=== PATIENT | female | born 1985 | race Two or more races ===

== ENCOUNTER 2018-05-31 01:28 | Inpatient (IN) | payer OTHER ==
[~2018-05-31] VITALS: Ht 152.4 cm; Wt 68.0 kg
[2018-05-31] MEDS ORDERED: NALBUPHINE 10 MG/ML AMPUL. IV PRN (01:45)
[2018-05-31] MEDS ORDERED: IBUPROFEN 400 MG TABLET. PO PRN (01:45)
[2018-05-31] MEDS ORDERED: OXYTOCIN 30 UNIT/500 ML PREMIX 500 ML IV PRN ×2 (01:45)
[2018-05-31] MEDS ORDERED: TERBUTALINE 1 MG/ML VIAL. SQ PRN (01:45)
[2018-05-31] MEDS ORDERED: LIDOCAINE 1% PF 30 ML VIAL. INJ PRN (01:45)
[2018-05-31] MEDS ORDERED: 0.9 % SODIUM CHLORIDE 10 ML DISP.SYRIN. IV PRN (01:45)
[2018-05-31] MEDS ORDERED: PENICILLIN G K 5,000,000 UNIT in IV DEXTROSE 5% 100ML 100 ML IV ONE (02:00)
[2018-05-31 02:15] LABS: BASO % 1 % (0-3); EOS # 0.3 x10^3/uL (0.0-0.7); EOS % 3 % (0-3); HEMATOCRIT 36.9 % (36.0-47.0); HEMOGLOBIN 12.6 g/dL (12.0-15.5); LYMPH # 2.1 x10^3/uL (1.0-4.8); LYMPH % 27 % (24-48); MEAN CORPUSCULAR HEMOGLOBIN 26 pg (25-35); MEAN CORPUSCULAR HGB CONC 34 g/dL (31-37); MEAN CORPUSCULAR VOLUME 76 fL (79-100); MONO # 0.6 x10^3/uL (0.0-1.1); MONO % 8 % (0-9); NEUT # 4.8 x10^3uL (1.8-7.7); NEUT % 61 % (31-73); PLATELET COUNT 149 x10^3/uL (140-400); RED BLOOD COUNT 4.89 x10^6/uL (3.50-5.40); RED CELL DISTRIBUTION WIDTH 14.7 % (11.5-14.5); WHITE BLOOD COUNT 7.9 x10^3/uL (4.0-11.0)
[2018-05-31] MEDS: IV RINGERS,LACTATED 1000ML 1,000 ML IV SCH ×3 (02:36→17:38)
[2018-05-31 02:37] LABS: ALBUMIN 2.8 g/dL (3.4-5.0); ALBUMIN/GLOBULIN RATIO 0.6 (1.0-1.7); CREATININE 0.7 mg/dL (0.6-1.0); GFR 98.3; POTASSIUM 3.5 mmol/L (3.5-5.1); TOTAL BILIRUBIN 0.3 mg/dL (0.2-1.0); TOTAL PROTEIN 7.8 g/dL (6.4-8.2)
--- NOTE | 2018-05-31 02:55 | RAD ---
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 Placenta is anteriorly located and grade 1 in appearance. movement and cardiac activity with heart rate of 136 bpm is identified. Cephalic lie noted. Amniotic fluid index is 11.7. Estimated weight is 4195 g. Sonographic EDC is 05/31/2018. Gestational age is 40 weeks 0 days. Biparietal diameter is 9.26 cm and this corresponds to 37 weeks 4 days. Head circumference is 33.76 cm corresponding to 38 weeks 5 days. Abdominal circumference is 38 cm this corresponds to 42 weeks 0 days. Femur length is 8.09 cm corresponding to 41 weeks 3 days. Head circumference to abdominal circumference ratio is 0.89. Impression: Single living intrauterine gestation with cephalic lie is present. Average ultrasound age corresponding to 40 weeks 0 days. Electronically signed by: Shemar Conley MD (05/31/2018 2:51 AM) [id number]
[2018-05-31 05:09] VITALS: BP 137/84
[2018-05-31] MEDS ORDERED: OXYTOCIN 30 UNIT/500 ML PREMIX 500 ML IV ONE (08:30)
[2018-05-31] MEDS ORDERED: OXYTOCIN PREMIX 30 UNIT/500 ML BAG. IV ONE (09:00)
[2018-05-31] MEDS: PENICILLIN G K 2,500,000 UNIT in IV DEXTROSE 5% 50 ML IV SCH ×4 (11:07→18:00)
--- NOTE | 2018-05-31 13:25 | PDOC1 ---
OB - History Hx of Present Care: None Ultrasounds: No ultrasounds Obstetrical Complications: None Medical Complications: None Past Family/Social History * Past Medical, Surgical, Family and Obstetric Histories reviewed from chart. Blood Type: Unknown Rubella: Unknown RPR/VDRL: Unknown GBS Status: Unknown HBsAG: Unknown OB - Chief Complaint & HPI Date of Admission: Date of Admission: May 31, 2018 at 01:28 Chief Complaint/History : 6 Para: 5 EGA: 40 Reason for admission: active labor Admission Nurse Assessment Rev: Yes OB - Admission Exam Physical Exam Vitals: VS - Last 72 Hours, by Label Date Time Temp Pulse Resp B/P (MAP) Pulse Ox O2 Delivery O2 Flow Rate FiO2 05/31/18 05:09 98.6 18 137/84 (101) Room Air 98.6 HEENT: Normal Heart: Regular Rate Lungs: Clear Abdomen: Gravid, Non tender, Soft Extremities: Edema Reflexes: Normal Cervical Dilatation: 2cm Effacement: 75% Station: -3 Membranes: Intact Amniotic Fluid: Clear Heart Rate: Normal Accelerations: Accelerations Present Contractions on Admission: 6-10 Minutes Apart Intensity: Moderate Text A: 40 wks IUP No OB care GBS unknown P: Admit labor management. Start Pen G prophylaxis. ADÁN MOLINA Jr, MD May 31, 2018 13:25
--- NOTE | 2018-05-31 16:25 | PDOC ---
VAGINAL DELIVERY DATE DATE: 05/31/18 TIME: 16:03 : 6 Para: 6 EGA: 40 VAGINAL DELIVERY: VTX VACCUM ASSISTED: No PLACENTA: Spontaneous 7/9 SEX: Female WEIGHT Weight [4070 gm ] Nuchal Cord: Yes, Times 1 Amniotic Fluid: Clear PAIN: Natural EPISIOTOMY: No EXTENSION: No EBL 300 ml COMPLICATIONS language barrier; Pt. uncooperative at time of delivery that delayed delivery of shoulders less than 1 minute. CONDITION stable ADDITIONAL NOTES Airport Operations Officer phone utilized immediately following rapid delivery. Pt. continues to refuse pelvic exam after delivery of placenta. She does not want to be touched and reports pain in pelvic area. No excessive bleeding following delivery and uterine fundus firm to palpation. Pt. uncooperative and keeps pushing phone away from communication. She feels she is going to if we keep trying to examine her and would rather go home. She was informed she may sign out AMA and social welfare clerk to see about child. Risk management informed. Signs of Intrauterine Infectio: None Shoulder Dystocia: Celeste Maneuver ADÁN MOLINA Jr, MD May 31, 2018 16:25
[2018-05-31 20:05] VITALS: BP 106/54
[2018-05-31 23:59] VITALS: BP 126/71
[2018-06-01 04:47] VITALS: BP 102/60
--- NOTE | 2018-06-01 10:04 | PDOC ---
GENERAL General: Patient feeling good. Nursing the Baby. Does not folloe Sinhala well. VITAL SIGNS Vital Signs: Vital Signs Date Time Temp Pulse Resp B/P (MAP) Pulse Ox O2 Delivery O2 Flow Rate FiO2 06/01/18 04:47 99.3 80 18 102/60 (74) 99 Room Air 99.3 I & O I & O Intake and Output 06/01/18 07:00 Intake Total 500 ml Balance 500 ml Intake Oral 500 ml # Voids 2 ALLERGIES Allergies: Allergies Coded Allergies Type Severity Reaction Last Updated Verified No Known Drug Allergies 05/31/18 No MEDS Medications: Current Medications Medications (Trade) Dose Ordered Sig/Vasiliy Start Time Stop Time Status Last Admin Dose Admin Ibuprofen (Motrin) 800 mg PRN Q6HRS PRN 05/31/18 01:45 06/01/18 04:55 800 MG Influenza Virus Vaccine (Afluria Trivalent [id number] Syringe) 0.5 ml ONCE ONCE 06/01/18 09:00 06/01/18 09:01 DC Lidocaine HCl (Xylocaine 1% Pf 30ml Vial) 30 ml 1X PRN PRN 05/31/18 01:45 06/02/18 01:44 Nalbuphine HCl (Nubain) 10 mg PRN Q1HR PRN 05/31/18 01:45 Oxytocin/Sodium Chloride 500 ml @ 0 mls/hr 1X ONCE 05/31/18 08:30 05/31/18 08:35 DC Penicillin G Potassium [id number] unit/Dextrose 50 ml @ 100 mls/hr Q4H 05/31/18 06:00 05/31/18 21:10 DC 05/31/18 15:09 100 MLS/HR Penicillin G Potassium [id number] unit/Dextrose 100 ml @ 100 mls/hr 1X ONCE 05/31/18 02:00 05/31/18 02:59 DC 05/31/18 02:43 100 MLS/HR Ringer's Solution 1,000 ml @ 125 mls/hr Q8H 05/31/18 01:38 05/31/18 21:10 DC 05/31/18 02:36 125 MLS/HR Sodium Chloride (Normal Saline Flush) 3 ml QSHIFT PRN 05/31/18 01:45 Terbutaline Sulfate (Brethine) 0.25 mg 1X PRN PRN 05/31/18 01:45 06/01/18 01:44 DC LAB Lab: Laboratory Tests Test 06/01/18 05:50 Hematocrit 34.8 % (36.0-47.0) ASSESSMENT & PLAN A&P Vital signs stable. Patient has Positive test for Syphilis. Abdomen soft. Uterus firm . Lochia normal. Patient will receive 4.8 million units of Bicillin LA IM today. Plan Dismissal in AM. PHILIPPE KLINE MD Jun 01, 2018 10:04
[2018-06-01] MEDS ORDERED: PENICILLIN G BENZATHINE LA 2,400,000 UNIT/4 ML DISP.SYRIN. IM ONE (10:45)
[2018-06-01 11:30] VITALS: BP 106/64
[2018-06-01 15:27] VITALS: BP 93/45
[2018-06-01 23:15] VITALS: BP 109/59
[2018-06-02 06:20] VITALS: BP 108/62
--- NOTE | 2018-06-02 10:09 | PDOC ---
GENERAL General: Patient ready to go home today No Problems VITAL SIGNS Vital Signs: Vital Signs Date Time Temp Pulse Resp B/P (MAP) Pulse Ox O2 Delivery O2 Flow Rate FiO2 06/02/18 06:20 98.2 78 18 108/62 (77) 98 98.2 ALLERGIES Allergies: Allergies Coded Allergies Type Severity Reaction Last Updated Verified No Known Drug Allergies 05/31/18 No MEDS Medications: Current Medications Medications (Trade) Dose Ordered Sig/Vasiliy Start Time Stop Time Status Last Admin Dose Admin Ibuprofen (Motrin) 800 mg PRN Q6HRS PRN 05/31/18 01:45 06/01/18 04:55 800 MG Influenza Virus Vaccine (Afluria Trivalent [id number] Syringe) 0.5 ml ONCE ONCE 06/01/18 09:00 06/02/18 07:42 DC 06/01/18 09:00 0.5 ML Lidocaine HCl (Xylocaine 1% Pf 30ml Vial) 30 ml 1X PRN PRN 05/31/18 01:45 06/02/18 01:44 DC Nalbuphine HCl (Nubain) 10 mg PRN Q1HR PRN 05/31/18 01:45 06/02/18 07:42 DC Oxytocin/Sodium Chloride (Oxytocin Premix Infusion) 30 unit STK-MED ONCE 05/31/18 09:00 06/01/18 13:23 DC Penicillin G Benzathine (Bicillin L-A) 4,800,000 unit 1X ONCE 06/01/18 10:45 06/02/18 07:42 DC 06/01/18 13:06 4,800,000 UNIT Penicillin G Potassium [id number] unit/Dextrose 50 ml @ 100 mls/hr Q4H 05/31/18 06:00 05/31/18 21:10 DC 05/31/18 15:09 100 MLS/HR Penicillin G Potassium [id number] unit/Dextrose 100 ml @ 100 mls/hr 1X ONCE 05/31/18 02:00 05/31/18 02:59 DC 05/31/18 02:43 100 MLS/HR Ringer's Solution 1,000 ml @ 125 mls/hr Q8H 05/31/18 01:38 05/31/18 21:10 DC 05/31/18 02:36 125 MLS/HR Sodium Chloride (Normal Saline Flush) 3 ml QSHIFT PRN 05/31/18 01:45 06/02/18 07:42 DC Terbutaline Sulfate (Brethine) 0.25 mg 1X PRN PRN 05/31/18 01:45 06/01/18 01:44 DC ASSESSMENT & PLAN A&P Dismissed to go home. Advised patient to see Doctor in 10 days.in office. Baby to be seen tomorrow. Patient was giveninstructions thru Stiff Leg Operator. PHILIPPE KLINE MD Jun 02, 2018 10:09
[2018-06-02 10:54] VITALS: BP 106/73
== END 2018-06-02 16:27 | disposition home or self-care (01) | DRG 807 ==
LOC: UNDOADMOB 01:28 → 3 SO LND 01:28 → EDSTATUS 18:04 → 3 NORTH 19:55
PROVIDERS: ADMIT Obstetrics & Gynecology; ATTEND Obstetrics & Gynecology
PROC: 10E0XZZ Delivery of Products of Conception, External Approach (ICD-10-PCS; principal; 2018-05-31)
DX: O98.12 Syphilis complicating childbirth (principal); Z37.0 Single live birth; O69.81X0 Labor and delivery complicated by cord around neck, without compression, not applicable or unspecified; Z3A.40 40 weeks gestation of pregnancy
CPT/HCPCS: 36415; 76815; 80053; 85014; 85025; 86592; 86593; 86703; 86762; 86850; 86900; 86901; 87340; 90471; 90756; J0561; J2540; J2590; J7120; Q2035